=== PATIENT | male | born 1975 | race Caucasian/White ===

== ENCOUNTER → 2023-03-04 23:15 | Outpatient (CLI) | payer SELFPAY ==
[2023-03-06 09:26] LABS: HBsAg Screen Negative (Negative); HCV Ab Non Reactive (Non Reactive); HSV 2 IgG, Type Spec <0.91 index (0.00-0.90); Hep A Ab, IGM Negative (Negative); Hep B Core Ab, IgM Negative (Negative); Rapid Plasma Reagin Ab Titer Non Reactive (NonRea<1:1)
[2023-03-07 08:10] LABS: HIV Screen 4th Generation wRfx Non Reactive (Non Reactive)
[2023-03-08 23:14] LABS: Neisseria gonorrhoeae, NAA Negative (Negative)
[2023-03-10 09:13] LABS: Trichomonas Vaginalis, NAA Negative
== END ==
LOC: LAB.DROPOF 23:16
PROVIDERS: PCP Nurse Practitioner; Visit Provider Nurse Practitioner
DX: Z11.3 Encounter for screening for infections with a predominantly sexual mode of transmission (principal)
CPT/HCPCS: 80074; 86593; 86695; 86703; 86790; 87491; 87591; 87661; G0432